=== PATIENT | male | born 1975 | race Caucasian/White ===

== ENCOUNTER 2023-12-16 22:23 | Emergency (ER) | payer BC ==
[~2023-12-16] VITALS: Ht 190.5 cm; Wt 98.8 kg
[~2023-12-16 22:23] MED LIST: SYMBICORT1 AE3
[2023-12-16 22:42] VITALS: BP 172/92
[2023-12-16 23:07] LABS: BASO # 0.03 K/mm3 (0.02-0.10); EOS # 0.08 K/mm3 (0.04-0.40); EOS % 0.9 % (0.0-4.0); HEMATOCRIT 49.7 % (42.0-52.0); HEMOGLOBIN 16.2 g/dL (13.5-18.0); LYMPH# 1.71 K/mm3 (1.50-4.00); MEAN CELL VOLUME 91 fl (78-100); MEAN CORPUSCULAR HEMOGLOBIN 30 pg (27-31); MEAN CORPUSCULAR HGB CONC 33 g/dL (33-37); MEAN PLATELET VOLUME 8.4 fl (7.4-10.4); NEU # 6.28 K/mm3 (1.40-6.50); PLATELET COUNT 201 K/mm3 (130-400); RED BLOOD COUNT 5.49 M/mm3 (4.20-5.60); RED CELL DISTRIBUTION WIDTH 12.8 % (11.5-14.5); WHITE BLOOD COUNT 9.1 K/mm3 (4.8-10.8)
[2023-12-16 23:10] LABS: ALBUMIN 4.6 g/dL (3.5-5.0)
[2023-12-16 23:11] LABS: CALCIUM 9.6 mg/dL (8.3-10.5)
[2023-12-16 23:13] LABS: TOTAL PROTEIN 7.5 g/dL (6.4-8.3)
[2023-12-16] MEDS ORDERED: Iohexol 350 - 100 ML VIAL IV ONE (23:42)
[2023-12-17 00:36] LABS: PH-URINE 5.5 (5.0 - 8.0); URINE APPEARANCE CLOUDY (CLEAR); URINE COLOR YELLOW (YELLOW)
[2023-12-17 00:37] LABS: URINE BILIRUBIN NEGATIVE (NEGATIVE); URINE BLOOD 2+ (NEGATIVE); URINE GLUCOSE NEGATIVE (NEGATIVE); URINE KETONE NEGATIVE (NEGATIVE); URINE LEUKOCYTE ESTERASE 2+ (NEGATIVE); URINE NITRATE NEGATIVE (NEGATIVE); URINE PROTEIN(semi-quant) 1+ (NEGATIVE); URINE WBC >50 /hpf (0-3)
== END 2023-12-17 01:10 | disposition home or self-care (01) ==
LOC: ED 22:23
PROVIDERS: Physician Assistant
DX: N13.2 Hydronephrosis with renal and ureteral calculous obstruction (principal)
CPT/HCPCS: A4340; Q9967